=== PATIENT | male | born 1950 | race Caucasian/White ===

== ENCOUNTER → 2020-09-07 | Outpatient (CLI) | payer MEDICARE ==
[~2020-09-07] MED LIST: CLONIDINE HCL0.2 MG PO; DOXAZOSIN MESYLA4 MG PO; IOPAMIDOL 370 MG/ML 200 ML INFUS..BTL INJ ONE; METFORMIN HCL1000 M1 PO; METOPROLOL TART25 MG PO; NORVASC10 MG PO; OMEPRAZOLE40 MG PO; SODIUM CHLORIDE 0.9% 500ML 500 ML ONE; SODIUM CHLORIDE 0.9% 50ML 50 ML ONE; TRIAMTERENE-HC1 EAC1 PO; [UNRECOGNIZED DRUG - OTHER] PO
[2020-09-07 17:35] LABS: CREATININE, SERUM 1.61 mg/dL (0.72-1.25)
== END | disposition home or self-care (01) ==
LOC: CT 16:45
PROVIDERS: ATTEND Family Medicine
DX: R10.31 Right lower quadrant pain (principal); K76.0 Fatty (change of) liver, not elsewhere classified; Q61.02 Congenital multiple renal cysts; N40.0 Benign prostatic hyperplasia without lower urinary tract symptoms
CPT/HCPCS: 36415; 74177; 82565; 84520; J7040; Q9967